=== PATIENT | female | born 1970 | race Caucasian/White ===

== ENCOUNTER 2016-12-27 18:42 | Emergency (ER) | payer BC ==
[~2016-12-27] VITALS: Ht 177.8 cm; Wt 93.0 kg
[~2016-12-27 18:42] MED LIST: CIPR-255 PO
[2016-12-27 18:47] VITALS: TEMP 36.4; Ht 177.8 cm; Wt 93.0 kg
[2016-12-27] MEDS ORDERED: MELA1TAB5 PO (19:34)
[2016-12-27] MEDS ORDERED: CYAN500T PO (19:34)
[2016-12-27 19:59] LABS: BASO % 0.4 %; BASO ABS # 0.03 K/uL (0-0.2); COMPLETE YES; EOS % 2.3 %; HEMATOCRIT 38.4 % (37-47); IG% 0.1 %; LYMPH % 20.4 %; MEAN CELL VOLUME 89.7 fL (80-100); MEAN CORPUSCULAR HEMOGLOBIN 29.9 pg (25-34); MEAN CORPUSCULAR HGB CONC 33.3 g/dl (32-36); MEAN PLATELET VOLUME 10.9 fL (7.4-10.4); MONO % 5.8 %; PLATELET COUNT 216 K/uL (130-400); RED BLOOD COUNT 4.28 M/uL (4.2-5.4); WHITE BLOOD COUNT 8.33 K/uL (4.8-10.8)
[2016-12-27 20:19] LABS: URINE APPEARANCE CLEAR (CLEAR); URINE BILIRUBIN NEG (NEG); URINE COLOR YELLOW; URINE NITRITE NEG (NEG); URINE SPECIFIC GRAVITY 1.017 (1.000-1.030); UROBILINOGEN NEG (NEG); ZZUR CULT IF INDIC CLEAN CATCH NO
[2016-12-27 20:21] LABS: BUN/CREATININE RATIO 15.2 (10-20); CALCIUM 8.4 mg/dl (8.5-10.1); CREATININE 1.08 mg/dl (0.60-1.20); POTASSIUM 3.5 mmol/L (3.5-5.1)
[2016-12-27 20:24] LABS: ALB/GLOB RATIO 1.1 (0.9-2)
--- NOTE | 2016-12-27 20:35 | EMERGENCY ROOM VISIT NOTE ---
History First contact with patient: 18:47 Chief Complaint: ABDOMINAL PAIN Stated Complaint: ABDOMINAL PAIN History of Present Illness The patient is a 46 year old female who presents to the Emergency Room with complaints of abdominal pain. The patient reports that one hour ago, she was sitting at home when she developed a sudden, cramping pain across her lower abdomen. She states that the pain was very severe and constant for a few hours. She had associated nausea, but no vomiting. She reports she was not able to sit down because the pain was so severe. On her way to the emergency department, she states that her pain improved significantly. She now reports a small amount of pressure in her left lower abdomen, but denies any true pain. She denies any history of similar symptoms. She does not have a menstrual period due to a history of an ablation. She denies any associated urinary symptoms or changes in bowel movements. She denies fevers or chills. She denies any history of ovarian cysts. She denies history of kidney stones. No history of abdominal surgery. The patient reports she is typically very healthy. Review of Systems A complete 10 point review of systems was reviewed with the patient with pertinent positives and negatives as per history of present illness. All else were negative. Past Medical/Surgical History Medical Problems: (1) section Social History Smoking Status: Never Smoker Marital Status: Occupation Status: unemployed Current/Historical Medications Scheduled Cyanocobalamin (Vitamin B-12), 500 MCG PO DAILY Scheduled PRN Melatonin (Kp Melatonin), 3 MG PO HS PRN for Sleep Physical Exam Vital Signs Date Time Temp Pulse Resp B/P (MAP) Pulse Ox O2 Delivery O2 Flow Rate FiO2 12/27/16 21:25 56 126/83 99 12/27/16 20:54 54 117/67 98 Room Air 12/27/16 18:47 36.4 69 20 127/82 99 Physical Exam VITALS: Vitals are noted on the nurse's note and reviewed by myself. Vital signs stable. GENERAL: This is a 46-year-old female, in no acute distress, nondiaphoretic, well-developed well-nourished. HEART: Regular rate and rhythm without murmurs gallops or rubs. LUNGS: Clear to auscultation bilaterally without wheezes, rales or rhonchi. ABDOMEN: Positive bowel sounds x 4. Soft, minimal tenderness in the left lower quadrant and suprapubic region. No guarding or rebound tenderness. NEURO: Patient was alert and oriented to person place and time. Medical Decision & Procedures ER Provider Diagnostic Interpretation: PELVIC ULTRASOUND CLINICAL HISTORY: Left lower quadrant pain. Pelvic pain. Nausea. Previous ablation. COMPARISON STUDY: CT of the abdomen and pelvis December 18, 2012. TECHNIQUE: Transabdominal and transvaginal sonography of the pelvis was performed. FINDINGS: The uterus measures 10.8 x 5 x 5.6 cm. Endometrium is slightly obscured but measures approximately 4 mm in thickness. Heterogeneity of the uterus is noted. A few nabothian cysts are noted. The right ovary is normal, measuring 3.1 x 1.5 x 1.9 cm. The left ovary measures 5.8 x 4.7 x 3.9 cm and contains a 4.3 cm anechoic lesion consistent with a cyst. Color flow is identified within each ovary. Trace free fluid is likely physiologic. IMPRESSION: 1. 4.3 cm left ovarian cyst. 2. No sonographic evidence of ovarian torsion. 3. Trace fluid within the pelvis which is likely physiologic. 4. Slightly obscured endometrium, likely normal in thickness. Laboratory Results 12/27/16 19:20 Red Blood Count 4.28, Mean Corpuscular Volume 89.7, Mean Corpuscular Hemoglobin 29.9, Mean Corpuscular Hemoglobin Concent 33.3, Mean Platelet Volume 10.9, Neutrophils (%) (Auto) 71.0, Lymphocytes (%) (Auto) 20.4, Monocytes (%) (Auto) 5.8, Eosinophils (%) (Auto) 2.3, Basophils (%) (Auto) 0.4, Neutrophils # (Auto) 5.92, Lymphocytes # (Auto) 1.70, Monocytes # (Auto) 0.48, Eosinophils # (Auto) 0.19, Basophils # (Auto) 0.03 12/27/16 19:20 Test 12/27/16 19:20 White Blood Count 8.33 K/uL (4.8-10.8) Red Blood Count 4.28 M/uL (4.2-5.4) Hemoglobin 12.8 g/dL (12.0-16.0) Hematocrit 38.4 % (37-47) Mean Corpuscular Volume 89.7 fL (80-100) Mean Corpuscular Hemoglobin 29.9 pg (25-34) Mean Corpuscular Hemoglobin Concent 33.3 g/dl (32-36) Platelet Count 216 K/uL (130-400) Mean Platelet Volume 10.9 fL (7.4-10.4) Neutrophils (%) (Auto) 71.0 % Lymphocytes (%) (Auto) 20.4 % Monocytes (%) (Auto) 5.8 % Eosinophils (%) (Auto) 2.3 % Basophils (%) (Auto) 0.4 % Neutrophils # (Auto) 5.92 K/uL (1.4-6.5) Lymphocytes # (Auto) 1.70 K/uL (1.2-3.4) Monocytes # (Auto) 0.48 K/uL (0.11-0.59) Eosinophils # (Auto) 0.19 K/uL (0-0.5) Basophils # (Auto) 0.03 K/uL (0-0.2) RDW Standard Deviation 43.6 fL (36.4-46.3) RDW Coefficient of Variation 13.3 % (11.5-14.5) Immature Granulocyte % (Auto) 0.1 % Immature Granulocyte # (Auto) 0.01 K/uL (0.00-0.02) Urine Color YELLOW Urine Appearance CLEAR (CLEAR) Urine pH 7.0 (4.5-7.5) Urine Specific [place] 1.017 (1.000-1.030) Urine Protein NEG (NEG) Urine Glucose (UA) NEG (NEG) Urine Ketones NEG (NEG) Urine Occult Blood NEG (NEG) Urine Nitrite NEG (NEG) Urine Bilirubin NEG (NEG) Urine Urobilinogen NEG (NEG) Urine Leukocyte Esterase NEG (NEG) Anion Gap 7.0 mmol/L (3-11) Est Creatinine Clear Calc Drug Dose 80.5 ml/min Estimated GFR () 71.3 Estimated GFR (Non- 61.5 BUN/Creatinine Ratio 15.2 (10-20) Calcium Level 8.4 mg/dl (8.5-10.1) Total Bilirubin 0.2 mg/dl (0.2-1) Aspartate Amino Transf (AST/SGOT) 11 U/L (15-37) Alanine Aminotransferase (ALT/SGPT) 17 U/L (12-78) Alkaline Phosphatase 39 U/L (45-117) Total Protein 6.7 gm/dl (6.4-8.2) Albumin 3.5 gm/dl (3.4-5.0) Globulin 3.2 gm/dl (2.5-4.0) Albumin/Globulin Ratio 1.1 (0.9-2) Lipase 136 U/L (73-393) ED Course The patient was evaluated as above. Labs were drawn and IV access was obtained. The patient declined analgesics. Pelvic ultrasound was performed and read by radiology as above. Patient was reevaluated and findings were discussed. She is having no pain at this time. Discharge instructions were reviewed with the patient. The patient verbalized understanding of my assessment and treatment plan and was discharged home in good condition. Medical Decision Differential diagnosis includes ovarian cyst, ovarian torsion, kidney stone, urinary tract infection, appendicitis, bowel obstruction, diverticulitis, among others. The patient is a 46-year-old female who presents today complaining of left lower quadrant/pelvic pain which has resolved. Labs revealed no leukocytosis, anemia or concerning electrolyte abnormalities. Urinalysis was not suggestive of infection. There was no blood in the urine to suggest a kidney stone. Pelvic ultrasound was performed and did show a 4.3 cm cyst on the left ovary, which is likely the source of the patient's pain. There is no evidence of torsion at this time. I had a lengthy discussion with the patient regarding this and encouraged her to follow up with [facility]. I did discuss symptoms which would be concerning for ovarian torsion. The patient understands to return if she has worsening pain, vomiting or other new/concerning symptoms. Based on the patient's presentation and work up, I feel the patient is stable for outpatient treatment. The patient was educated to return to the emergency department for any worsening of their current condition or new/concerning symptoms. She will follow up with her PCP and [facility]. Medication Reconcilliation Current Medication List: was personally reviewed by me Blood Pressure Screening Patient's blood pressure: Normal blood pressure Impression Primary Impression: Ovarian cyst Departure Information Dispostion Home / Self-Care Condition GOOD Referrals Lida Last PA-C (PCP) Forms Call Back Authorization, HOME CARE DOCUMENTATION FORM, IMPORTANT VISIT INFORMATION Patient Instructions My [facility] Additional Instructions You have been treated in the Emergency Department your Abdominal Pain. Laboratory results and imaging studies have ruled out any emergent causes for your abdominal pain which would warrant admission or surgery. Ultrasound did show a left-sided ovarian cyst. You should contact her [facility] to schedule a repeat pelvic ultrasound. For pain control, you can use the following [id number] medicines (if >12 yo): - Regular strength (325mg/tab) Tylenol (acetaminophen) 2 tabs every 4-6 hours as needed. Do not exceed 12 tablets in a 24 hour period. Avoid taking more than 4 grams (4000 mg) of Tylenol per day. This includes any other sources of acetaminophen you may take on a regular basis. - Regular strength (200 mg/tab) Advil (ibuprofen) 3 tabs every 6 hours as needed. Do not exceed a dose of 3200 mg per day. Drink plenty of water and stay well hydrated. As with any trip to the Emergency Department, you should follow-up with your Primary Care Provider from today's visit. Return to the emergency department if your symptoms persist despite treatment plan outlined above or if the following symptoms occur: Increasing pain, vomiting, fevers or any other new/concerning symptoms. Problem Qualifiers Primary Impression: Ovarian cyst Laterality: left Qualified Codes: N83.202 - Unspecified ovarian cyst, left side
[2016-12-27 20:39] LABS: MANUAL MICROSCOPIC REQUIRED? NO; REVIEW REQ? NO
--- NOTE | 2016-12-27 20:49 | DIAGNOSTIC IMAGING REPORT ---
PELVIC ULTRASOUND CLINICAL HISTORY: Left lower quadrant pain. Pelvic pain. Nausea. Previous ablation. COMPARISON STUDY: CT of the abdomen and pelvis December 18, 2012. TECHNIQUE: Transabdominal and transvaginal sonography of the pelvis was performed. FINDINGS: The uterus measures 10.8 x 5 x 5.6 cm. Endometrium is slightly obscured but measures approximately 4 mm in thickness. Heterogeneity of the uterus is noted. A few nabothian cysts are noted. The right ovary is normal, measuring 3.1 x 1.5 x 1.9 cm. The left ovary measures 5.8 x 4.7 x 3.9 cm and contains a 4.3 cm anechoic lesion consistent with a cyst. Color flow is identified within each ovary. Trace free fluid is likely physiologic. IMPRESSION: 1. 4.3 cm left ovarian cyst. 2. No sonographic evidence of ovarian torsion. 3. Trace fluid within the pelvis which is likely physiologic. 4. Slightly obscured endometrium, likely normal in thickness. Electronically signed by: Ford Sabillon M.D. 12/27/2016 8:47 PM Dictated Date/Time: 12/27/2016 8:45 PM
[2016-12-27 21:25] VITALS: BP 126/83; PULSE 56; O2SAT 99
== END 2016-12-27 21:27 | disposition home or self-care (01) ==
LOC: C.EDB 18:43
DX: N83.202 Unspecified ovarian cyst, left side (principal)